=== PATIENT | female | born 1990 | race African-American/Black ===

== ENCOUNTER 2021-02-16 01:00 | Inpatient (IN) | payer OTHER, MEDICAID ==
[~2021-02-16] VITALS: Ht 172.7 cm; Wt 120.9 kg
[2021-02-16] VITALS (19 sets, daily range): BP systolic 119–148; BP diastolic 59–82; PULSE 64–90; TEMP 98–98.6
[~2021-02-16 01:00] MED LIST: NO HOME MEDICATIONS
--- NOTE | 2021-02-16 01:10 | NUR ---
G2L1. 39-3. Ambulatory to [facility] 5 with significant other. Clean gown on. EFM and and TOCO explained and applied. Pt states her water broke at 0040 tonight, clear fluid. Pt states since her water broke she has been having contractions every 10mins apart. States contractions are not painful at this time. SVE 280/-2. Light mec fluid noted with exam. Plan of care explained to pt who verbalizes her understanding. 0140: updated on pts status. See physican notification. Admit orders received. Pt updated on new plan of care. 0200: Report given to Brooklynn VIERA.
[2021-02-16] MEDS ORDERED: PRENATAL MVI PO (01:26)
[2021-02-16 02:53] LABS: HEMATOCRIT 38.2 % (37.0-47.0); HEMOGLOBIN 12.1 g/dl (12.5-16.0); MEAN CELL VOLUME 86 fl (80.0-100.0); MEAN CORPUSCULAR HEMOGLOBIN 27 pg (27.0-31.0); MEAN CORPUSCULAR HGB CONC 32 g/dl (33.0-37.0); MEAN PLATELET VOLUME 10.5 fl (7.4-10.4); PLATELET COUNT 353 K/mm3 (130-400); RED BLOOD COUNT 4.42 M/mm3 (4.10-5.30); REDCELL DISTRIBUTION WIDTH-CV 14.7 % (11.5-14.5)
[2021-02-16 03:22] LABS: BAND 2 % (0-10); LYMPHOCYTE 32 % (20.0-51.0); NEUTROPHILS 57 % (42.0-75.2)
[2021-02-16 03:23] LABS: PLATELET ESTIMATE NORMAL (NORMAL)
[2021-02-16 03:24] LABS: HYPOCHROMIA 1+
--- NOTE | 2021-02-16 07:10 | NUR ---
0710- Roles updated. Orders to check patient and start pitocin if not continuing to make change. 0725-Patient /2. Reports contractions more uncomfortable. Notified. Gina,SHIRLEY patient will want an epidural when current surgery case finishd. 0750-Patient nauseated, no emesis only dry heaves. FHR difficult to maintain continuous tracing due to maternal repositioning frequently for comfort. 0800-Paitent RL follwoing FHR decel down to 90-100BPM with spontaneous return to baseline. 0820-Patient with nausea and emesis. Up to stand at bedside. 0830- Roles on unit. In to see patient. 0835-SVE by 8cm per .
--- NOTE | 2021-02-16 08:35 | NUR ---
0835-FSE placed by . Repositioned RL and then sat up for epidural placement. SHIRLEY Fuentes to patient room. 0845-SS administered by anesthesia, 0845 catheter threaded by anesthesia, 0846 Test dose by anesthesia. Patient tolerated well. Repositioned WL. See anesthesia record. 0858-SVE by patient complete. Set up for delivery.
--- NOTE | 2021-02-16 09:05 | NUR ---
0905-Patient begins pushign with RN and MD at bedside. Moves vertex well. 909-MD assumes pushing with patient and RN at bedside. FHR decels down to 60-70bpm with pushing efforts. Slow return to baseline. 0914-Vacuum applied to head by MD. Patient continues to push with contractions as MD assists with vacuum. 18-Vacuum removed by MD and patient pushes head out. Nuchal cord x1 reduced by MD. Patient continues to push and body follows. Viable female to mothers abdomen. Cord clamped x2 and cut by FOB. Care of asumed by MAXIMILIANO Wray apgars 8//9. Cord gasses collected and sent. 920-Spontaneous delivery of intact placenta by MD. Fundal massage firm. Brenda WNL. Pitocin bolus per order. Annamarie care provided and updated patient on plan of care and safety.
--- NOTE | 2021-02-16 11:30 | NUR ---
1130-Patient easily voids clear yellow urine. Ambulates independantly with steady gait to room 218. Oriented to room. Updated on plan of care.
[2021-02-17] VITALS: BP 126/70; PULSE 79; TEMP 98.8
[2021-02-17 07:45] VITALS: BP 128/77; PULSE 73; TEMP 98.4
[2021-02-17] MEDS ORDERED: IBU600 MG PO (08:52)
== END 2021-02-17 11:52 | disposition home or self-care (01) | DRG 807 ==
LOC: LDRO 01:00 → OB 01:46 → LDR 01:46 → OB 12:00
PROVIDERS: ADMIT Student in an Organized Health Care Education/Training Program
PROC: 10E0XZZ Delivery of Products of Conception, External Approach (ICD-10-PCS; principal; 2021-02-16)
PROC: 10D07Z6 Extraction of Products of Conception, Vacuum, Via Natural or Artificial Opening (ICD-10-PCS; 2021-02-16)
PROC: 0HQ9XZZ Repair Perineum Skin, External Approach (ICD-10-PCS; 2021-02-16)
DX: O77.0 Labor and delivery complicated by meconium in amniotic fluid (principal); Z37.0 Single live birth; O76 Abnormality in fetal heart rate and rhythm complicating labor and delivery; O69.81X0 Labor and delivery complicated by cord around neck, without compression, not applicable or unspecified; O70.0 First degree perineal laceration during delivery; Z3A.39 39 weeks gestation of pregnancy
CPT/HCPCS: J2590; J2795; J7120